=== PATIENT | female | born 1990 | race African-American/Black ===

== ENCOUNTER 2023-11-23 21:34 | Emergency (ER) | payer SELFPAY ==
[~2023-11-23] VITALS: Ht 175.3 cm; Wt 66.0 kg
[2023-11-23 21:37] VITALS: O2SAT 99
[2023-11-23 21:45] VITALS: TEMP 98.8
[2023-11-23 23:37] LABS: CHLORIDE 108 mEq/L (98-107); POTASSIUM 4.4 mEq/L (3.5-5.1); SODIUM 141 mEq/L (136-145)
[2023-11-23 23:38] LABS: CARBON DIOXIDE 18 mEq/L (21-32)
[2023-11-23 23:43] LABS: CREATININE 1.3 mg/dL (0.6-1.0); GLUCOSE 82 mg/dL (70-105); UREA NITROGEN BLOOD 19 mg/dL (9-23)
[2023-11-23 23:46] LABS: ETHANOL BLOOD < 10 mg/dL (<10)
[2023-11-23 23:57] LABS: HCG SCREEN NEGATIVE
[2023-11-24] MEDS ORDERED: KEPP500 MT (00:18)
[2023-11-24] MEDS: LEVETIRACETAM 500MG TABLET PO ONE (00:38)
[2023-11-24 00:52] VITALS: BP 118/82; PULSE 94; RESP 16
== END 2023-11-24 00:54 | disposition home or self-care (01) ==
LOC: ER 21:34
DX: G40.89 Other seizures (principal)
CPT/HCPCS: 80048; 80320; 82962; 84703; 36415; 99283; Z7610; G0480